=== PATIENT | male | born 2000 | race Caucasian/White ===

== ENCOUNTER 2019-03-17 02:17 | Emergency (ER) | payer OTHER, MEDICAID, SELFPAY ==
[2019-03-17 02:30] VITALS: BP 131/88; PULSE 107; RESP 20; TEMP 37.5; O2SAT 96
[2019-03-17] MEDS: ALBUTEROL 2.5 MG/3 ML NEB (ADULT) INH (02:43)
--- NOTE | 2019-03-17 02:49 | DI.RAD.S_ITS ---
PROCEDURE: XR CHEST 2V INDICATIONS: cough/shortness of breath TECHNIQUE: 2 views of the chest were acquired. COMPARISON: [facility], , CHEST 2 VIEW, 09/26/2008, 15:42. FINDINGS: Surgical changes and devices: None. Lungs and pleura: Lungs are clear considering large body habitus and reduced inspiratory volume. No pleural effusions or pneumothorax. Mediastinum: Mediastinal contours are normal. Heart size is normal. Bones and chest wall: No suspicious bony abnormalities. Soft tissues appear unremarkable. IMPRESSION: Large body habitus, reduced inspiratory volume. There is mild prominence of the bronchovascular markings as result, and therefore it is difficult to entirely exclude a small degree of superimposed pulmonary edema. No focal pneumonia found. Dictated by: Antoine Chirinos M.D. on 03/17/2019 at 8:48 Approved by: Antoine Chirinos M.D. on 03/17/2019 at 8:49
[2019-03-17 02:57] LABS: Influenza A and B by PCR Rapid Negative (Negative)
[2019-03-17] MEDS: SODIUM CHLORIDE 0.9% 1,000 ML 1000 ML IV (03:28)
--- NOTE | 2019-03-17 04:20 | ED.URI ---
HPI - URI/Sore Throat General Chief Complaint: Upper Respiratory Symptoms Stated Complaint: Sore throat Time Seen by Provider: 03/17/19 03:50 Source: patient Mode of arrival: ambulatory Limitations: no limitations History of Present Illness HPI Narrative: Patient is a 18-year-old male who presents with sore throat and shortness of breath. He says he notices shortness of breath at work today. He denies any chest pain or heart palpitations. He has also had a sore throat ongoing for the last couple of days he is still able to swallow and manage his own secretions he has not had any fever or body aches. He says he did cough up some yellow sputum. MD Complaint: cough and sore throat Related Data Home Medications Medication Instructions Recorded Confirmed [ALLERGY MEDICATION] #0 08/27/17 07/15/18 [TURMERIC] #0 08/27/17 07/15/18 Respiornics Dreamstation CPAP #1 ea 10/25/18 10/25/18 Previous Rx's Medication Instructions Recorded ibuprofen 800 mg PO TIDP PRN #30 tab 08/19/17 hydrocodone-acetaminophen 0 tab PO Q6HP PRN #15 tab 10/05/17 ketorolac 10 mg PO Q6HP PRN #15 tab 10/05/17 ondansetron [Zofran ODT] 4 mg SUBLINGUAL Q6HP PRN #20 odt 10/05/17 Allergies Allergy/AdvReac Type Severity Reaction Status Date / Time amphetamine [From Adderall] Allergy Unknown Unverified 07/15/18 10:32 dextroamphetamine Allergy Unknown Unverified 07/15/18 10:32 [From Adderall] lisdexamfetamine Allergy Unknown Unverified 07/15/18 10:32 SEAFOOD Allergy Unknown Uncoded 07/15/18 10:32 Review of Systems Review of Systems ROS Unobtainable: All systems reviewed & are unremarkable except as noted in HPI and below Constitutional Constitutional: Denies chills, Denies fever(s), Denies lethargy and Denies weakness Eyes Eyes: Denies change in vision, Denies eye discharge, Denies irritation and Denies loss of vision ENT Ears, Nose, Mouth, and Throat: Reports as per HPI Cardiovascular Cardiovascular: Denies chest pain, Denies irregular heart rhythm, Denies lightheadedness, Denies palpitations, Reports dyspnea and Denies orthopnea Respiratory Respiratory: Reports cough, Reports dyspnea, Denies stridor and Denies wheezing Gastrointestinal Gastrointestinal: Denies abdominal pain, Denies change in bowel habits, Denies diarrhea, Denies nausea and Denies vomiting Genitourinary Genitourinary: Denies hematuria, Denies flank pain, Denies urinary incontinence and Denies urinary urgency Musculoskeletal Musculoskeletal: Denies back pain, Denies muscle weakness, Denies numbness and Denies tingling Integumentary/Breasts Skin/Breast: Denies pruritus, Denies erythema, Denies rash and Denies wounds Neurologic Neurologic: Denies loss of vision, Denies numbness, Denies tingling and Denies weakness Endocrine Endocrine: Denies palpitations Allergic/Immunologic Allergic/Immunologic: Denies wheezing [facility] Medical History Insomnia (Chronic) Morbid obesity with body mass index of 40.0-49.9 (Chronic) Obstructive sleep apnea of adult (Chronic) Snoring (Inactive) Social History (Updated 10/23/18 @ 19:48 by ADENIKE Schmitz) marital status: unmarried,single details: lives in [place] household members: family housing: house occupational status: student Smoking Status: Current every day smoker alcohol intake: never substance use type: does not use Type(s) of exercise: walking Social History marital status: unmarried,single details: lives in [place] household members: family housing: house occupational status: student Smoking Status: Current every day smoker alcohol intake: never substance use type: does not use Type(s) of exercise: walking Exam Initial Vital Signs Initial Vital Signs: Vital Signs Temperature 99.5 F 03/17/19 02:30 Pulse Rate 107 H 03/17/19 02:30 Respiratory Rate 20 03/17/19 02:30 Blood Pressure 131/88 03/17/19 02:30 Pulse Oximetry 96 03/17/19 02:30 GENERAL: Overweight well-appearing male HEENT: Head atraumatic,EOMI, pupils reactive, face symmetric, moist mucous membranes PHARYNX: No erythema, no tonsillar exudate, no cervical lymphadenopathy CARDIOVASCULAR: Regular rate and rhythm without murmurs, rubs or gallops. RESPIRATORY: Breath sounds equal bilaterally, no wheezes rales or rhonchi. ABDOMEN: Soft, nontender. Normoactive bowel sounds all 4 quadrants. No guarding or rebound. EXTREMITIES: Normal range of motion, no clubbing or edema. Neurovascularly intact NEUROLOGICAL: Alert and oriented x4.Normal gait and speech. SKIN: Warm, dry, no laceration, no petechiae, no rashes or lesions. Course Orders Ordered: ED Orders 03/17/19 02:35 Influenza A and B by PCR Rapid Stat 03/17/19 02:49 Chest [XR chest 2V] Stat Discontinued Medications Sodium Chloride (Normal Saline 0.9%) 1,000 mls @ 1,000 mls/hr IV BOLUS ONE Stop: 03/17/19 04:24 Last Infusion: 03/17/19 04:42 Dose: 1,000 mls/hr Documented by: Admin: 03/17/19 03:28 Dose: 1,000 mls/hr Documented by: KEYUR Vital Signs Vital signs: Vital Signs - 8 hr 03/17/19 02:30 03/17/19 04:30 Temperature 99.5 F Pulse Rate 107 H 93 H Respiratory Rate 20 17 Blood Pressure 131/88 129/88 Pulse Oximetry 96 99 MDM - URI/Sore Throat Lab Data Attestation: I reviewed the patient's lab results. Labs: Lab Results 03/17/19 Range/Units 02:35 Influenza A & B (PCR) Negative (Negative) Point of Care Testing Rapid Strep A Negative Imaging Data Chest x-ray: Attestation: I personally reviewed and interpreted this imaging study as follows: My impression: No acute cardiopulmonary process MDM Narrative Medical decision making narrative: Patient did receive albuterol treatment he said it made it worse. He has no difficulty managing his own secretions. Influenza and strep are negative. He overall does not appear septic or toxic. This is likely upper respiratory viral syndrome. Discharge Plan Departure Patient Disposition: Home Clinical Impression: Upper respiratory infection Qualifiers: URI type: unspecified viral URI Qualified Code(s): J06.9 - Acute upper respiratory infection, unspecified Discharge Date/Time: 03/17/19 04:30 Instructions: DI for Viral Upper Respiratory Infection -- Adult Activity Restrictions/Additional Instructions: *You have been diagnosed with upper respiratory infection *What to do: At this time no indication for antibiotics. This is likely a virus. Recommending rest *Continue to take medications as directed *Follow up with your primary care provider in 2-3 days *Return to ER if you should have increasing shortness of breath, increasing throat pain, fevers, decreased oral intake or any new, worsening or concerning symptoms Prescriptions: No Action ibuprofen 800 MG tablet 800 mg PO TIDP PRNQty: 30 RF: 0 [TURMERIC] Qty: 0 RF: 0 [ALLERGY MEDICATION] Qty: 0 RF: 0 hydrocodone-acetaminophen 5 MG/325 MG tablet 0 tab PO Q6HP PRNQty: 15 RF: 0 ketorolac 10 MG tablet 10 mg PO Q6HP PRNQty: 15 RF: 0 ondansetron [Zofran ODT] 4 MG tablet,disintegrating 4 mg Sublingual Q6HP PRNQty: 20 RF: 0 (DME) Respiornics Dreamstation CPAP Qty: 1 RF: 0 Referrals: Miguel Wilson [Primary Care Provider] -
[2019-03-17 04:30] VITALS: BP 129/88; PULSE 93; RESP 17; O2SAT 99
== END 2019-03-17 04:30 | disposition home or self-care (01) ==
PROVIDERS: Emergency Provider Emergency Medicine; PCP Family Medicine
DX: J06.9 Acute upper respiratory infection, unspecified (principal)
CPT/HCPCS: 36591; 71046; 87400; 87502; 87880; 96360; 99283; 99284; J7613

== ENCOUNTER 2020-01-23 00:14 | Emergency (ER) | payer OTHER, MEDICAID, SELFPAY ==
--- NOTE | 2020-01-23 00:16 | DI.RAD.S_ITS ---
PROCEDURE: XR CHEST 1V INDICATIONS: SOB TECHNIQUE: One view of the chest was acquired. COMPARISON: [facility], CR, XR CHEST 2V, 03/17/2019, 3:03. FINDINGS: Surgical changes and devices: None. Lungs and pleura: Lungs are clear. No pleural effusions or pneumothorax. Mediastinum: Mediastinal contours appear normal. Heart size is normal. Bones and chest wall: No suspicious bony lesions. Overlying soft tissues appear unremarkable. IMPRESSION: No acute cardiopulmonary disease process. Dictated by: Meghan Ortega MD, PhD on 01/23/2020 at 8:38 Approved by: Meghan Ortega MD, PhD on 01/23/2020 at 8:38
[2020-01-23 00:17] VITALS: BP 151/92; PULSE 88; RESP 20; TEMP 37.1; O2SAT 100; BMI 45.9
--- NOTE | 2020-01-23 00:32 | ED.GENADULT ---
HPI - General Adult General Chief complaint: Upper Respiratory Symptoms Stated complaint: shortness of breath Time Seen by Provider: 01/23/20 00:16 Source: patient Mode of arrival: Ambulatory Limitations: no limitations History of Present Illness HPI narrative: 19-year-old male with chronic medical problems to include what he describes as exercise-induced asthma here for evaluation approximately 5 hours of shortness of breath. He states he did use his albuterol multiple times prior to arrival in thinks this potentially is helped his symptoms somewhat. Denies any other associated symptoms. Related Data Home Medications Medication Instructions Recorded Confirmed [ALLERGY MEDICATION] #0 08/27/17 04/22/19 [TURMERIC] #0 08/27/17 04/22/19 Respiornics Dreamstation CPAP #1 ea 10/25/18 04/22/19 Allergies Allergy/AdvReac Type Severity Reaction Status Date / Time amphetamine [From Adderall] Allergy Unknown Verified 01/23/20 00:24 dextroamphetamine Allergy Unknown Verified 01/23/20 00:24 [From Adderall] lisdexamfetamine Allergy Unknown Verified 01/23/20 00:24 SEAFOOD Allergy Intermediate Uncoded 01/23/20 00:24 Review of Systems Constitutional Constitutional: Denies fever(s) Cardiovascular Cardiovascular: Denies chest pain and Reports dyspnea Respiratory Respiratory: Denies cough and Reports dyspnea Gastrointestinal Gastrointestinal: Denies abdominal pain Integumentary/Breasts Skin/Breast: Denies rash Neurologic Neurologic: Denies behavioral changes Psychiatric Psychiatric: Denies behavioral changes Hematologic/Lymphatic Hematologic/Lymphatic: Denies easy bleeding and Denies easy bruising Patient History Medical History Insomnia (Chronic) Morbid obesity with body mass index of 40.0-49.9 (Chronic) Obstructive sleep apnea of adult (Chronic) Pituitary microadenoma (Acute) Snoring (Inactive) Social History marital status: unmarried,single details: lives in [place] household members: family housing: house occupational status: student Smoking Status: Current every day smoker alcohol intake: never substance use type: does not use Type(s) of exercise: walking Smoking Status: Current every day smoker tobacco type: vaping alcohol intake frequency: holidays/special occasions only Substance Use Type: does not use Exam Initial Vital Signs Initial Vital Signs: Vital Signs Temperature 98.7 F 01/23/20 00:17 Pulse Rate 88 01/23/20 00:17 Respiratory Rate 20 01/23/20 00:17 Blood Pressure 151/92 H 01/23/20 00:17 Pulse Oximetry 100 01/23/20 00:17 Const General: cooperative and comfortable Limitations: mental status not altered HENMT Head: normal to inspection and normocephalic Resp Effort & Inspection: normal respiratory effort Auscultation: clear to auscultation bilaterally Cardio Rate: regular rate Rhythm: regular rhythm Pulses: radial pulses present Skin Lesions: no lesions Rashes: no rashes Neuro General: patient alert and patient awake Cognition: normal cognition Speech: speech normal Extrem General: normal to inspection and capillary refill normal Psych Appearance: grossly normal and well kempt Course Orders Ordered: ED Orders 01/23/20 00:16 XR chest 1V Stat Discontinued Medications Dexamethasone (Decadron) 12 mg PO NOW ONE Stop: 01/23/20 01:05 Last Admin: 01/23/20 01:20 Dose: 12 mg Documented by: CLAUDIA Vital Signs Vital signs: Vital Signs - 8 hr 01/23/20 00:17 Temperature 98.7 F Pulse Rate 88 Respiratory Rate 20 Blood Pressure 151/92 H Pulse Oximetry 100 Medical Decision Making Imaging Data Chest x-ray: My Impression: No acute changes MDM Narrative Medical decision making narrative: Chest x-ray is unremarkable, his physical exam is unremarkable, he was given a dose of steroids given his stated history of asthma. He does not have a AeroChamber to use with his inhaler so will send him home with this. We did testing for COVID-19. He was given instructions regarding this. I feel patient can be safely discharged home. He was given return precautions. He expressed understanding and agreement. Discharge Plan Departure Patient Disposition: Home Clinical Impression: Shortness of breath Discharge Date/Time: 01/23/20 01:17 Instructions: DI for COVID-19 (Suspected or Confirmed ) Activity Restrictions/Additional Instructions: Recommend you use your albuterol inhaler and spacer at home like we discussed. You were tested for COVID-19 this evening. This test normally takes 2-5 days to result. We will contact you for positive or negative results. Until then recommend that you self quarantine. Contact her primary provider for follow-up. Return to the emergency department for any new or worsening symptoms Prescriptions: No Action [TURMERIC] Qty: 0 RF: 0 [ALLERGY MEDICATION] Qty: 0 RF: 0 (DME) Respiornics Dreamstation CPAP Qty: 1 RF: 0 Referrals: Miguel Wilson [Primary Care Provider] -
[2020-01-23] MEDS: dexAMETHasone 4 MG TABLET 12 MG PO (01:20)
[2020-01-24 06:39] LABS: COVID19 Sendout Not Detected (Not Detect)
== END 2020-01-23 01:17 | disposition home or self-care (01) ==
PROVIDERS: Emergency Provider Emergency Medicine; PCP Family Medicine
DX: R06.02 Shortness of breath (principal); Z03.818 Encounter for observation for suspected exposure to other biological agents ruled out
CPT/HCPCS: 71045; 87635; 99283

== ENCOUNTER → 2020-10-18 12:34 | Outpatient (CLI) | payer OTHER, MEDICAID, SELFPAY ==
[2020-10-18] MEDS: COVID-19 VACC #1, MRNA(MOD) 100 MCG/0.5 ML VIAL IM (12:41)
== END ==
PROVIDERS: PCP Family Medicine; Visit Provider Internal Medicine
DX: Z23 Encounter for immunization (principal)
CPT/HCPCS: 0011A; 91301

== ENCOUNTER → 2020-11-15 12:21 | Outpatient (CLI) | payer OTHER, MEDICAID, SELFPAY ==
[2020-11-15] MEDS: COVID-19 VACC #2, MRNA(MOD) 100 MCG/0.5 ML VIAL IM (12:23)
== END ==
PROVIDERS: PCP Family Medicine; Visit Provider Internal Medicine
DX: Z23 Encounter for immunization (principal)
CPT/HCPCS: 0012A; 91301

== ENCOUNTER 2021-01-20 00:19 | Emergency (ER) | payer OTHER, MEDICAID, SELFPAY ==
[2021-01-20 00:25] VITALS: BP 171/104; PULSE 82; RESP 16; TEMP 37.2; O2SAT 96; BMI 48.0
--- NOTE | 2021-01-20 00:55 | ED.SKABFB ---
HPI - Skin/Abscess/Foreign Bdy General Chief complaint: Skin/Abscess/Foreign Body Stated complaint: Bee sting allergy/possible bee sting Time Seen by Provider: 01/20/21 00:43 Source: patient Mode of arrival: Ambulatory Limitations: no limitations History of Present Illness HPI narrative: Patient is a 20-year-old male who was stung on the palm of his left hand. 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 He thinks it was a bee that stung him. He has not had any problems with breathing or vomiting up to this point. Has not tried anything for the symptoms. Came right to the emergency department because of his prior history of reactions. Related Data Home Medications Medication Instructions Recorded Confirmed [ALLERGY MEDICATION] #0 08/27/17 04/22/19 [TURMERIC] #0 08/27/17 04/22/19 Respiornics Dreamstation CPAP #1 ea 10/25/18 04/22/19 Allergies Allergy/AdvReac Type Severity Reaction Status Date / Time amphetamine [From Adderall] Allergy Unknown Verified 01/23/20 00:24 dextroamphetamine Allergy Unknown Verified 01/23/20 00:24 [From Adderall] lisdexamfetamine Allergy Unknown Verified 01/23/20 00:24 bee venom protein (honey bee) Allergy Verified 01/20/21 00:40 SEAFOOD Allergy Intermediate Uncoded 01/23/20 00:24 Review of Systems Constitutional Constitutional: Denies fever(s) ENT Ears, Nose, Mouth, and Throat: Denies lip swelling, Denies throat swelling and Denies tongue swelling Cardiovascular Comments: No chest pain Respiratory Respiratory: Denies wheezing Comments: No shortness of breath Gastrointestinal Comments: No abdominal pain nausea vomiting Musculoskeletal Comments: Pain around the area of the bee sting of his left hand Integumentary/Breasts Comments: Small area of redness around the palm of his left hand Neurologic Neurologic: Reports system reviewed and no additional complaints, except as documented Hematologic/Lymphatic On Anticoagulants: No Allergic/Immunologic Allergic/Immunologic: Denies urticaria, Denies lip swelling, Denies throat swelling, Denies tongue swelling and Denies wheezing Patient History Medical History (Updated 01/20/21 @ 01:34 by Magdiel Barton DO) Insomnia Morbid obesity with body mass index of 40.0-49.9 Obstructive sleep apnea of adult Pituitary microadenoma Snoring Social History marital status: unmarried,single details: lives in [place] household members: family housing: house occupational status: student Smoking Status: Current every day smoker alcohol intake: never substance use type: does not use Type(s) of exercise: walking Smoking Status: Current every day smoker tobacco type: vaping alcohol intake frequency: holidays/special occasions only Substance Use Type: does not use Exam Initial Vital Signs Initial Vital Signs: Vital Signs Temperature 98.9 F 01/20/21 00:25 Pulse Rate 82 01/20/21 00:25 Respiratory Rate 16 01/20/21 00:25 Blood Pressure 171/104 H 01/20/21 00:25 Pulse Oximetry 96 01/20/21 00:25 Const General: cooperative, healthy appearing and comfortable HENMT Head: normal to inspection and normocephalic Eyes General: appearance normal, both eyes and all related structures Resp Effort & Inspection: normal respiratory effort Auscultation: clear to auscultation bilaterally Cardio Rate: regular rate GI Inspection: normal to inspection Skin Other: Patient has a small area of redness on the palm of his left hand over the hypothenar eminence. Neuro General: patient alert, patient awake, patient oriented x3 and moves all extremities Extrem General: capillary refill normal Psych Appearance: grossly normal and well kempt Course Orders Ordered: Discontinued Medications Diphenhydramine HCl (Diphenhydramine 25 Mg Tablet) 25 mg PO NOW ONE Stop: 01/20/21 00:57 Last Admin: 01/20/21 00:59 Dose: 25 mg Documented by: PABLO Prednisone (Prednisone 20 Mg Tablet) 20 mg PO NOW ONE Stop: 01/20/21 00:57 Last Admin: 01/20/21 00:59 Dose: 20 mg Documented by: PABLO Vital Signs Vital signs: Vital Signs - 8 hr 01/20/21 00:25 Temperature 98.9 F Pulse Rate 82 Respiratory Rate 16 Blood Pressure 171/104 H Pulse Oximetry 96 MDM - Skin/Abscess/Foreign Bdy MDM Narrative Medical decision making narrative: It does appear to be a local reaction to the palm of his left hand without any surrounding erythema. He does not have any signs of an anaphylactic reaction. Is afebrile. Was given steroids and Benadryl here in the ER. After a period of observation I feel it is unlikely that he is going to develop an anaphylactic reaction to this bee sting. Will discharge home with strict return precautions. He expressed understanding and agreement. Discharge Plan Departure Patient Disposition: Home Clinical Impression: Bee sting Instructions: Insect Bites and Stings Activity Restrictions/Additional Instructions: You can use Benadryl as needed. If I also recommend placing ice over the area. Contact your primary doctor for follow-up. Return to the emergency department for any new or worsening symptoms Prescriptions: No Action [TURMERIC] Qty: 0 RF: 0 [ALLERGY MEDICATION] Qty: 0 RF: 0 (DME) Respiornics Dreamstation CPAP Qty: 1 RF: 0 Referrals: Miguel Wilson DO [Primary Care Provider] -
[2021-01-20] MEDS: predniSONE 20 MG TABLET PO (00:59)
[2021-01-20] MEDS: diphenhydrAMINE 25 MG TABLET PO (00:59)
[2021-01-20 01:37] VITALS: BP 155/88; PULSE 86; RESP 16; O2SAT 98
== END 2021-01-20 01:38 | disposition home or self-care (01) ==
PROVIDERS: Emergency Provider Emergency Medicine; PCP Family Medicine
DX: T63.441A Toxic effect of venom of bees, accidental (unintentional), initial encounter (principal)
CPT/HCPCS: 99283

== ENCOUNTER 2021-04-20 03:34 | Emergency (ER) | payer OTHER, MEDICAID, SELFPAY ==
--- NOTE | 2021-04-20 03:38 | ED.GENADULT ---
HPI - General Adult General Chief complaint: Upper Respiratory Symptoms Stated complaint: sore throat x2 days Time Seen by Provider: 04/20/21 03:38 History of Present Illness HPI narrative: 20-year-old gentleman with mild seasonal allergies but no other significant medical issues presents with 24 hours of sore throat. Yesterday it responded nicely to cold and flu medication but today it was bothering him enough that his boss asked him to come to the emergency room for further evaluation. He is concerned it is strep throat. He is COVID vaccinated. He describes no fevers, runny nose, abdominal pain, cough, palpitations and no ear pain. Related Data Home Medications Medication Instructions Recorded Confirmed [ALLERGY MEDICATION] #0 08/27/17 04/22/19 [TURMERIC] #0 08/27/17 04/22/19 Respiornics Dreamstation CPAP #1 ea 10/25/18 04/22/19 Allergies Allergy/AdvReac Type Severity Reaction Status Date / Time amphetamine [From Adderall] Allergy Unknown Verified 01/23/20 00:24 dextroamphetamine Allergy Unknown Verified 01/23/20 00:24 [From Adderall] lisdexamfetamine Allergy Unknown Verified 01/23/20 00:24 bee venom protein (honey bee) Allergy Verified 01/20/21 00:40 SEAFOOD Allergy Intermediate Uncoded 01/23/20 00:24 Review of Systems Review of Systems Narrative: Remainder of complete review of systems is otherwise unremarkable except for that included in the HPI. Patient History Medical History (Updated 04/20/21 @ 04:16 by Herminia Whitmore MD) Insomnia Morbid obesity with body mass index of 40.0-49.9 Obstructive sleep apnea of adult Pituitary microadenoma Snoring Social History marital status: unmarried,single details: lives in [place] household members: family housing: house occupational status: student Smoking Status: Current every day smoker alcohol intake: never substance use type: does not use Type(s) of exercise: walking Smoking Status: Current every day smoker tobacco type: vaping alcohol intake frequency: holidays/special occasions only Substance Use Type: does not use Exam Narrative Exam Narrative: General: Morbidly obese, in no acute distress. Able to give a complete and coherent history. Well-nourished well-developed HEENT: Moist mucous membranes, normal sclera with reactive pupils, difficult to see to posterior pharynx due to body habitus but minimal erythema, no exudate Neck: No cervical adenopathy Respiratory: Lungs are clear to auscultation, no wheezing no rales no rhonchi. Full and symmetrical air movement Cardiac: Regular rate and rhythm no murmurs no bruits Abdomen: Soft, nontender, good bowel tones, no flank pain Skin: Warm and dry, no rashes Neurologic: Grossly neurologically intact with no obvious asymmetries or abnormalities Extremities: No trauma, well perfused Psych: Cooperative, appropriate insight and affect Initial Vital Signs Initial Vital Signs: Vital Signs Temperature 98.6 F 04/20/21 03:43 Pulse Rate 86 04/20/21 03:43 Respiratory Rate 18 04/20/21 03:43 Blood Pressure 141/86 H 04/20/21 03:43 Pulse Oximetry 98 04/20/21 03:43 Course Orders Ordered: ED Orders 04/20/21 03:40 COVID19 -Nasal swab/Pre-Proc Stat Vital Signs Vital signs: Vital Signs - 8 hr 04/20/21 03:43 Temperature 98.6 F Pulse Rate 86 Respiratory Rate 18 Blood Pressure 141/86 H Pulse Oximetry 98 Medical Decision Making Lab Data Labs: Lab Results 04/20/21 Range/Units 03:40 SARS-CoV-2 (PCR) Negative (Negative) Point of Care Testing Rapid Strep A Negative Point of care testing: Point of Care Testing Rapid Strep A Negative Discharge Plan Departure Patient Disposition: Home Clinical Impression: Upper respiratory infection Qualifiers: URI type: unspecified viral URI Qualified Code(s): J06.9 - Acute upper respiratory infection, unspecified Instructions: DI for Viral Upper Respiratory Infection -- Adult Activity Restrictions/Additional Instructions: Thank you for coming in today It looks like you have a mild upper respiratory virus. You do not have COVID You do not have strep throat Using 400 mg of ibuprofen (2 [id number] pills) and 1 Tylenol every 6 hours can be very helpful in controlling pain. I hope you feel better soon Prescriptions: No Action [TURMERIC] Qty: 0 RF: 0 [ALLERGY MEDICATION] Qty: 0 RF: 0 (DME) Respiornics Dreamstation CPAP Qty: 1 RF: 0 Referrals: Miguel Wilson DO [Primary Care Provider] -
[2021-04-20 03:43] VITALS: BP 141/86; PULSE 86; RESP 18; TEMP 37; O2SAT 98; BMI 47.3
[2021-04-20 04:09] LABS: COVID19 -Nasal RAPID Negative (Negative)
== END 2021-04-20 04:10 | disposition home or self-care (01) ==
PROVIDERS: Emergency Provider Emergency Medicine; PCP Family Medicine
DX: J06.9 Acute upper respiratory infection, unspecified (principal); F17.290 Nicotine dependence, other tobacco product, uncomplicated; Z20.822 Contact with and (suspected) exposure to COVID-19
CPT/HCPCS: 87635; 87880; 99282; C9803

== ENCOUNTER 2024-06-12 01:53 | Emergency (ER) | payer OTHER, SELFPAY ==
[2024-06-12 01:59] VITALS: BP 139/90; PULSE 84; RESP 18; TEMP 36.2; O2SAT 97; BMI 37.3
--- NOTE | 2024-06-12 02:08 | ED.GENADULT ---
HPI - General Adult General Chief complaint: Ear Stated complaint: rt ear hearing loss/pain shooting down jaw Time Seen by Provider: 06/12/24 02:04 Source: patient Mode of arrival: Ambulatory History of Present Illness HPI narrative: 23-year-old otherwise healthy male is here for evaluation right ear pain, loss of hearing in his right ear and pain shooting down into his jaw. He does take allergy medicine on a daily basis. No. No trauma. He was left ear is unremarkable. No sinus congestion or sore throat Related Data Home Medications Medication Instructions Recorded Confirmed [ALLERGY MEDICATION] ##0 08/27/17 05/30/21 Respiornics Dreamstation CPAP #1 ea 10/25/18 05/30/21 tjyiuhfh-qpubnypk-prgly acid 400 tab PO 05/30/21 05/30/21 mcg-vit K 20 mcg-lycop 300 mcg tablet (Men's Multivitamin) Allergies Allergy/AdvReac Type Severity Reaction Status Date / Time amphetamine [From Adderall] Allergy Unknown Verified 06/12/24 02:01 dextroamphetamine Allergy Unknown Verified 06/12/24 02:01 [From Adderall] lisdexamfetamine Allergy Unknown Verified 06/12/24 02:01 bee venom protein (honey bee) Allergy Verified 06/12/24 02:01 SEAFOOD Allergy Intermediate Uncoded 05/30/21 14:35 Review of Systems Review of Systems Narrative: See HPI Patient History Medical History Tobacco use disorder, continuous Pituitary microadenoma Insomnia Morbid obesity with body mass index of 40.0-49.9 Obstructive sleep apnea of adult Snoring Social History marital status: unmarried,single details: lives in [place] household members: family housing: house occupational status: student Smoking Status: Current every day smoker alcohol intake: never substance use type: does not use Type(s) of exercise: walking Smoking Status: Current every day smoker tobacco type: vaping alcohol intake frequency: holidays/special occasions only Exam Initial Vital Signs Initial Vital Signs: Vital Signs Temperature 97.2 F L 06/12/24 01:59 Pulse Rate 84 06/12/24 01:59 Respiratory Rate 18 06/12/24 01:59 Blood Pressure 139/90 06/12/24 01:59 Pulse Oximetry 97 06/12/24 01:59 Oxygen Delivery Method Room Air 06/12/24 01:59 HENMT Head: normal to inspection and normocephalic Ears: TM normal on the left, mastoids normal bilaterally and EAC abnormal erythema on the right, edema on the right and EAC tenderness on the right Mouth: oral mucosae normal and moist mucous membranes Course Orders Ordered: Discontinued Medications Ofloxacin (Ofloxacin 0.3% Ophth Prepack) 1 bottle MISC DIRECTED ONE Stop: 06/12/24 02:10 Vital Signs Vital signs: Vital Signs - 8 hr 06/12/24 01:59 Temperature 97.2 F L Pulse Rate 84 Respiratory Rate 18 Blood Pressure 139/90 Pulse Oximetry 97 Oxygen Delivery Method Room Air Medical Decision Making MDM Narrative Medical decision making narrative: History and physical exam and symptoms are consistent with right-sided otitis externa. No mastoid tenderness. He was able to visualize a small portion of the tympanic membrane on the right and the portion that was visible is unremarkable. Low suspicion for concomitant otitis media. Left TM is unremarkable. Patient was given antibiotic drops. He was given return precautions and follow-up instructions. He expressed understanding and agreement Discharge Plan Departure Patient Disposition: Home Clinical Impression: Otitis externa Instructions: DI for Otitis Externa Activity Restrictions/Additional Instructions: Use the antibiotic drops as directed. Return to the emergency department for new or worsening symptoms. Prescriptions: No Action [ALLERGY MEDICATION] Qty: 0 (DME) Respiornics Dreamstation CPAP Qty: 1 Dose Instruction: As directed Patient Comments: Pressure: 5-9 cmH2O DME: [facility] Rx Instructions: As directed Men's Multivitamin 400-20-300 mcg tablet PO Referrals: Miguel Wilson DO [Primary Care Provider] - Stand Alone Forms: Patient Portal/API/Survey
[2024-06-12] MEDS: OFLOXACIN 0.3% OPHTH PREPACK 1 BOTTLE MISC (02:16)
== END 2024-06-12 02:18 | disposition home or self-care (01) ==
PROVIDERS: Emergency Provider Emergency Medicine; PCP Family Medicine
DX: H60.91 Unspecified otitis externa, right ear (principal)
CPT/HCPCS: 99281